=== PATIENT | male | born 1955 | race Caucasian/White ===

== ENCOUNTER 2016-03-27 09:20 | Observation (INO) | payer OTHER ==
[2016-03-27] MEDS ORDERED: ASPIRIN 81 MG (BABY) CHEWABLE TABLET PO ONE (09:24)
[2016-03-27] MEDS ORDERED: Sodium Chloride 0.9% 1,000 ML PRIMARY IV ONE (09:24)
[2016-03-27] MEDS ORDERED: NORMAL SALINE 10 ML SYRINGE FLUSH IVP PRN ×2 (09:24→12:21)
[2016-03-27 09:41] LABS: BASOPHILS # (AUTO) 0.03 10*3/UL; BASOPHILS % (AUTO) 0.3 % (0-1); EOSINOPHILS % (AUTO) 0.7 % (0-8); HEMATOCRIT 47.3 % (42.0-52.0); HEMOGLOBIN 16.2 g/dL (14.0-18.0); IMM GRAN % (AUTO) 0.2 % (0-5); IMM GRAN# (AUTO) 0.02 10*3/UL; LYMPHOCYTES # (AUTO) 1.33 10*3/uL; LYMPHOCYTES % (AUTO) 13.2 % (10-50); MEAN CORPUSCULAR HEMOGLOBIN 30.5 PG (27-31); MEAN CORPUSCULAR HGB CONC 34.2 g/dL (33-37); MEAN PLATELET VOLUME 9.3 FL (7.4-12.2); MONOCYTES # (AUTO) 0.81 10*3/UL (0.3-0.8); MONOCYTES % (AUTO) 8.1 % (5-15); NEUTROPHILS # (AUTO) 7.79 10*3/UL; NEUTROPHILS % (AUTO) 77.5 % (50-80); RDW COEFFICIENT OF VARIATION 13.7 % (11.5-14.5); RED BLOOD COUNT 5.31 10^6/uL (4.70-6.10); WHITE BLOOD COUNT 10.05 10^3/uL (4.8-10.8)
[2016-03-27 09:42] LABS: PLATELET MORPHOLOGY COMMENT NORMAL MORPHOLOGY (NORM)
[2016-03-27] MEDS: NITROGLYCERIN 0.4 MG SL TAB (BOTTLE OF 3) SL PRN ×3 (09:47→10:08)
[2016-03-27 10:01] LABS: ASPARTATE AMINO TRANSFERASE 27 IU/L (21-57); BLOOD UREA NITROGEN 14 mg/dL (7-22); CHLORIDE 96 meq/L (98-112); CREATININE 0.8 mg/dL (0.70-1.50); EST GLOMERULAR FILTRATION > 60 (>60 ml/min/1.73m(2)); GLUCOSE 117 mg/dL (78-110); MAGNESIUM 1.8 mg/dL (1.6-2.4); POTASSIUM 4.7 meq/L (3.8-5.2); SODIUM 133 meq/L (135-145); TOTAL PROTEIN 7.3 g/dL (6.1-8.0)
--- NOTE | 2016-03-27 10:03 | PDOC ---
Chest Pain HPI - General Chief Complaint: Chest Pain Stated Complaint: CHEST PAIN Date Seen by Provider: 03/27/16 Time Seen by Provider: 09:20 Source: Patient Exam Limitations: POSITIVE: No limitations Treatment Prior to Arrival: REPORTS: None Nurse's Notes Reviewed & Considered: Yes - History of Present Illness Initial Comments: The patient is a 60-year-old male who presents to the emergency department with left-sided chest pain. He states that he had onset of pain approximately 90 minutes ago. He states that he was upset and angry at the time of onset of pain. His pain has worsened slightly since then. His current pain level is about a 5 out of 10. His pain is not worsened significantly with taking a deep breath. He denies any nausea, lightheadedness, palpitations or any other associated complaints. He does have a history of coronary artery disease and is status post [place] in 2000. 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 He also continues to smoke and has a history of hypertension. He denies any pain or swelling in his legs, recent illness or any other associated complaints. - Patient Home Medications Home Medications: Home Medications Aspirin Chewable Tab 81 mg PO DAILY 03/27/16 Atorvastatin Calcium [Lipitor] 80 mg PO DAILY 03/27/16 Fosinopril Sodium 10 mg PO DAILY 03/27/16 Metoprolol Succinate [Toprol XL] 50 mg PO DAILY 03/27/16 - Patient Allergies Allergies/Adverse Reactions: Allergies Allergy/AdvReac Type Severity Reaction Status Date / Time codeine Allergy NOT Verified 03/27/16 09:36 APPLICABLE Past Medical History - heen HEENT History: Denies History Cardiovascular History: Hypertension, Previous [place], Hyperlipidemia Respiratory History: Other (please comment) Additional Respiratory History: SMOKER Gastrointestinal History: Diverticulitis Genitourinary History: Denies History Endocrine History: Denies History Musculoskeletal History: Denies History Neurological History: Denies History Blood Disorders: Denies History Psychiatric History: Denies History Male Reproductive History: Denies History Cancer History: Denies History In Past Year Been Physically Harmed or Verbally Threatened: No History of MDRO: No Tobacco Use: Current Every Day Smoker Alcohol Use: Occasionally Substance Use Type: None Previous Surgical History: Yes Type / Date of Surgery: CARDIAC STENTS Significant Family History: No pertinent family hx Past Medical History Reviewed: Reviewed - No Changes ROS - Limitations ROS Limitations: No Limitations Constitution: DENIES: Chills, Fever Cardiovascular: REPORTS: Chest Pain. DENIES: Heart Racing, Heart Palpitations, Blood Pressure Problem, Edema Respiratory: REPORTS: Denies Resp Symptoms. DENIES: Hurts To Breathe Neurological: REPORTS: Denies Neuro Symptoms Gastrointestinal: REPORTS: Denies GI Symptoms Musculoskeletal: REPORTS: Denies MS Symptoms Eyes: REPORTS: Denies Symptoms ENT: REPORTS: Denies Symptoms Skin: DENIES: Rash Chest Pain PE - General Appearance General Appearance: REPORTS: Alert, Cooperative, No Acute Distress - HEENT HEENT: POSITIVE: Head Inspection Nml, Eyes Inspection Nml, Ears Inspection Nml - Neck Neck: REPORTS: Normal Inspection. DENIES: JVD Present - Respiratory Respiratory: REPORTS: No Respiratory Distress, Breath Sounds Normal - Cardiovascular Cardiovascular: REPORTS: Regular Rate and Rhythm, Heart Sounds Normal Peripheral Pulses: Dorsalis-pedis (R): 2+, Dorsalis-pedis (L): 2+ - Abdomen Abdomen: Soft: (All Quadrants), No Guarding: (All Quadrants), No Rebound: (All Quadrants), No Distention: (All Quadrants) - Skin Skin: REPORTS: Intact, No Rash - Extremities Extremity: Normal ROM: (All Extremities), Normal Inspection: (All Extremities) - Neurological / Psychological Neurological: POSITIVE: Oriented X3, Motor Normal, Sensation Normal Chest Pain Progress - Results Reviewed by me Xrays/CTs/US Reviewed by me: Yes Discussed with Radiologist: Yes Radiology Findings: Chest x-ray shows multiple soft tissue nodules measuring less than 3 mm, no previous chest x-ray available for comparison, no acute changes otherwise Lab Results Reviewed: Yes Lab Results:: Laboratory Results 03/27/16 Range/Units 09:37 WBC 10.05 (4.8-10.8) 10^3/uL RBC 5.31 (4.70-6.10) 10^6/uL Hgb 16.2 (14.0-18.0) g/dL Hct 47.3 (42.0-52.0) % MCV 89.1 (80-90) FL MCH 30.5 (27-31) PG MCHC 34.2 (33-37) g/dL RDW Std Deviation 44.3 (39-50) fL RDW Coeff of Radha 13.7 (11.5-14.5) % Plt Count 239 (140-350) 10*3/uL MPV 9.3 (7.4-12.2) FL Immature Gran % (Auto) 0.2 (0-5) % Neut % (Auto) 77.5 (50-80) % Lymph % (Auto) 13.2 (10-50) % [place] % (Auto) 8.1 (5-15) % Eos % (Auto) 0.7 (0-8) % Baso % (Auto) 0.3 (0-1) % Immature Gran # (Auto) 0.02 10*3/UL Neut # (Auto) 7.79 10*3/UL Lymph # (Auto) 1.33 10*3/uL [place] # (Auto) 0.81 H (0.3-0.8) 10*3/UL Eos # (Auto) 0.07 10*3/UL Baso # (Auto) 0.03 10*3/UL WBC Morphology Comment Normal morphology (NORM) Plt Morphology Comment Normal morphology (NORM) RBC Morph Comment Normal morphology (NORM) D-Dimer < 0.19 (0.00-0.59) mg/L Sodium 133 L (135-145) meq/L Potassium 4.7 (3.8-5.2) meq/L Chloride 96 L (98-112) meq/L Carbon Dioxide 25 (23-33) meq/L Anion Gap 12 (5-20) BUN 14 (7-22) mg/dL Creatinine 0.8 (0.70-1.50) mg/dL Estimated GFR > 60 (>60 ml/min/1.73m(2)) BUN/Creatinine Ratio 17.50 (6-20) Glucose 117 H (78-110) mg/dL Calculated Osmolality 277.0 (267-292) mOsm/kg Calcium 9.0 (8.7-10.7) mg/dL Magnesium 1.8 (1.6-2.4) mg/dL Total Bilirubin 1.0 (0.3-1.2) mg/dL AST 27 (21-57) IU/L ALT 40 (21-72) IU/L Alkaline Phosphatase 95 (38-126) IU/L CK-MB (CK-2) 1.28 (0.00-5.00) NG/DL Troponin I < 0.012 (< 0.040) ng/mL Total Protein 7.3 (6.1-8.0) g/dL Albumin 4.4 (3.5-4.8) g/dL Globulin 2.9 (2.50-4.10) g/dL Albumin/Globulin Ratio 1.50 (1.3-2.0) mg/g EKG Interpreted/Reviewed By Me:: Yes EKG Interpretation:: POSITIVE: Normal Sinus Rhythm, Normal Rate, Normal [place], Normal QRS, Normal ST/T, Other (His initial EKG shows normal sinus rhythm with no acute ST segment or T-wave changes) - Patient's Progress MDM / ED Course: His initial EKG on presentation shows normal sinus rhythm with no acute ST segment or T-wave changes. He was given aspirin per chest pain protocol. In addition his blood pressure was significantly elevated at 200/100 on arrival. He was given sublingual nitroglycerin. His blood pressure came down into the 120s to 130s with administration of sublingual nitroglycerin. His pain also improved down to a very slight ache. His initial d-dimer and troponin are normal, other blood work is unremarkable. The patient does have multiple risk factors for coronary artery disease. It was felt that it would be best to admit him for further cardiac monitoring and workup. The patient is in agreement with this plan. Dr. Ruiz has agreed to admit the patient. - Consult Counseled: POSITIVE: Patient, RE: Lab Results, RE: Radiology Results, RE: DX, RE : Need for F/U Patient Care Time - Estimated PCT Patient Care Time (In Minutes): 25 Vital Signs - Recent Vital Signs Vital Signs: Vital Signs (Last 8 hours) Pulse Resp BP Pulse Ox 03/27/16 09:24 80 20 201/114 97 - VS Reviewed Vital Signs Reviewed: Yes Discharge Clinical Impression: Chest pain, Hypertension Discharge Disposition: Admit to Observation Condition: Stable
[2016-03-27 10:12] LABS: CREATINE KINASE MB 1.28 NG/DL (0.00-5.00)
[2016-03-27 10:13] LABS: TROPONIN I < 0.012 ng/mL (< 0.040)
--- NOTE | 2016-03-27 10:42 | DI ---
AP CHEST X-RAY, 03/27/2016 9:24 AM : Clinical History: Chest pain. Previous Exam: None at this facility. There is no acute soft tissue or bony abnormality. Heart size is normal. There is no acute infiltrate or effusion. Multiple nodular densities are present bilaterally in these range up to 3 mm in diamete r. Mediastinal structures are normal. Readin. No acute infiltrate or effusion is present. 2. Multiple bilateral nodules are present and these do not appear to be calcified. These range in si ze up to 3 mm in diameter. No hilar adenopathy or calcified lymph nodes are noted.
--- NOTE | 2016-03-27 11:14 | EKG ---
[address] [address] Measurements Intervals Chloe Rate: 70 P: 60 [place]: 162 QRS: 51 QRSD: 100 T: 75 QT: 380 QTc: 400 Interpretive Statements SINUS RHYTHM WITH SINUS ARRHYTHMIA No previous ECG available for comparison Electronically Signed On 03-27-16 12:39:14 MST by Henry Peng [id number]
--- NOTE | 2016-03-27 12:25 | PDOC ---
History and Physical - History of Present Illness Date and Time of Service: 03/27/2016 12:25 PM Chief Complaint: Episode of chest pain today History of Present Illness: This is a 60 years old male with medical history significant for history of hypertension, hypercholesterolemia and coronary artery disease with previous stent who said that he was at work and then became upset and angry and he started to have pain in the left side of the chest and some numbness in his left arm that he rated to be about 4-5 out of 10 because of the symptoms he came into the ER the EKG was negative, enzymes were negative and he was admitted for further management. He did get the nitroglycerin and aspirin while done in the ER and that helped his pain. He forgot to take his blood pressure medications today. Past Medical History Medical History: 1. History of coronary artery disease with previous [place] in 2000 with a stent. 2. History of hypertension. 3. History of hypercholesterolemia Surgical History: 1. History of cholecystectomy. 2. History of multiple hand surgery Past Social History: He is a smoker, pack a day, rarely drinks, no drugs. 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 Tobacco Use: Current Every Day Smoker Do you dip or chew tobacco: No Substance Use Type: None Alcohol Use: Rarely Medication / Allergies Home Medications: Home Medications Medication Instructions Recorded Confirmed Type Aspirin Chewable Tab 81 mg PO DAILY 03/27/16 03/27/16 History Atorvastatin Calcium [Lipitor] 80 mg PO DAILY 03/27/16 03/27/16 History Fosinopril Sodium 10 mg PO DAILY 03/27/16 03/27/16 History Hydrochlorothiazide 12.5 mg PO DAILY 03/27/16 03/27/16 History Metoprolol Succinate [Toprol XL] 50 mg PO DAILY 03/27/16 03/27/16 History Allergies/Adverse Reactions: Allergies Allergy/AdvReac Type Severity Reaction Status Date / Time codeine Allergy NOT Verified 03/27/16 14:15 APPLICABLE Review of Systems - Review of Systems All Systems: Reviewed & No Additional Complaints Except as Stated Exam - Vitals Vital Signs: Vital Signs Temperature 97.5 F Temperature Source Temporal Artery Scan Pulse Rate [Pulse Oximeter] 71 Respiratory Rate 18 Blood Pressure [Right Arm] 151/80 Pulse Ox 95 Oxygen Delivery Method Room Air - General General Appearance: POSITIVE: No Acute Distress, Cooperative - Head Head Exam: POSITIVE: Normal Inspection - Eye Eye Exam: POSITIVE: Normal Appearance - ENT ENT Exam: POSITIVE: Normal Exam - Neck Neck Exam: POSITIVE: Normal Inspection - Respiratory Respiratory Exam: POSITIVE: Clear to Auscultation - Bilaterally - Cardiovascular Cardiovascular Exam: POSITIVE: RRR - GI/Abdominal GI/Abdominal Exam: POSITIVE: Normal Bowel Sounds, Non Tender, Non Distended, Soft - Rectal Rectal Exam: POSITIVE: Deferred - External Exam: POSITIVE: Deferred Exam: POSITIVE: Deferred - Extremities Extremities Exam: POSITIVE: Normal Inspection - Back Back Exam: POSITIVE: Normal Inspection - Neurological Neurological Exam: POSITIVE: Alert, Oriented x 3, CN II-XII Intact, Moves All Extremities Equally - Psychiatric Psychiatric Exam: POSITIVE: Normal Affect - Integumentary Integumentary Exam: POSITIVE: Normal Color Results - Labs CBC and BMP: 03/27/16 09:37 03/27/16 09:37 - EKG Data EKG Interpretation: Normal EKG - Imaging Status: Report Reviewed by Me (Chest x-ray Some nodules noted on the lung) Assessment and Plan - Patient Problems (1) Chest pain Current Visit: Yes Status: Acute Comment: We repeat his enzymes will order stress test for tomorrow. This may be related to stress and uncontrolled blood pressure (2) Hypertension Current Visit: Yes Status: Acute Comment: Blood pressure was high when he came in, he said he didn't take his blood pressure medication will give him his blood pressure medication. (3) Hypercholesterolemia Current Visit: Yes Status: Acute Comment: Same medications (4) Pulmonary nodules Current Visit: Yes Status: Acute Comment: Few pulmonary nodules noted on the x-ray of his chest, will order a CT may need to be followed up later on as an outpatient
[2016-03-27] MEDS: METOPROLOL SUCCINATE 50 MG SR 24H TABLET PO SCH (13:06)
--- NOTE | 2016-03-27 15:34 | DI ---
CT CHEST SCAN WITHOUT IV CONTRAST, 03/27/2016 12:28 PM : Clinical History: Abnormal chest x-ray revealing multiple bilateral pulmonary nodules. Previous Exam: None at this facility. Comparison is made with the chest x-ray performed on 03/27/2016. Scans are performed from the base of the neck to the lower lung bases without IV contrast. Sagittal a nd coronal images using non MIPS and MIPS technique are generated. The base of the neck and thoracic inlet are normal. There are no abnormal axillary or supraclavicular nodes. There calcified lymph nodes involving the right and left paratracheal, subcarinal, and hilar nodes bilaterally. The heart is normal. Coronary artery calcifications are visualized in the LAD, lef t circumflex artery, and the right coronary artery. This patient may have a vascular stent in the LAD distal to the second diagonal artery. There are bilateral calcified nodules involving all lobes. The se nodules range in size between 2-4 mm in diameter. Both adrenal glands are normal. The spleen is un remarkable except for multiple punctate calcifications and together with the calcifications in the ly mph nodes and the lungs, this patient most likely has had prior exposure to either TB or histoplasmos is. Limited views of the liver and pancreas are also normal. READIN. The bilateral pulmonary nodules range in size between 2-4 mm in diameter and are calcified. Calci fied lymph nodes are present in the myriam and mediastinum and spleen. This patient most likely has had previous exposure to either TB or histoplasmosis. 2. Coronary artery disease with calcifications in the right coronary artery, the LAD, and the left c ircumflex artery. There may be a stent in the midportion of the LAD.
[2016-03-27] MEDS ORDERED: ATORVASTATIN 40 MG TABLET PO SCH (21:00)
[2016-03-28 07:55] VITALS: RESP 20
[2016-03-28] MEDS ORDERED: ASPIRIN 325 MG TABLET PO SCH (09:00)
[2016-03-28] MEDS ORDERED: HYDROCHLOROTHIAZIDE 12.5 MG CAPSULE PO SCH (09:00)
--- NOTE | 2016-03-28 10:16 | PDOC(PROG) ---
Date and Time of Service: 03/28/2016 10:13 AM Interval History: Subjective Patient feels better denying complaints today there is no chest pain. No shortness of breath. Objective : Data - Labs CBC and BMP: 03/27/16 09:37 03/27/16 09:37 Labs - Last 24 Hours: Laboratory Results 03/27/16 03/27/16 Range/Units 15:50 21:19 Total Creatine Kinase 66 73 (55-170) IU/L Troponin I < 0.012 < 0.012 (< 0.040) ng/mL Objective : Exam - General General Appearance: No Acute Distress, Cooperative - Head Head Exam: Normal Inspection - Eye Eye Exam: Normal Appearance - ENT ENT Exam: Normal Exam - Neck Neck Exam: Normal Inspection - Respiratory Additional Respiratory Exam Details: Decreased breath sounds otherwise clear - Cardiovascular Cardiovascular Exam: RRR - GI/Abdominal GI/Abdominal Exam: Normal Bowel Sounds, Non Tender, Non Distended, Soft - Rectal Rectal Exam: Deferred - External Exam: Deferred - Extremities Extremities Exam: Normal Inspection Additional Extremities Exam Details: Scar noted on the left lower leg - Back Back Exam: Normal Inspection - Neurological Neurological Exam: Alert, Oriented x 3, CN II-XII Intact, Speech Intact / Clear , Moves All Extremities Equally - Psychiatric Psychiatric Exam: Normal Affect - Integumentary Additional Integumentary Exam Details: Scar noted on the left lower leg Assessment and Plan - Patient Problems (1) Chest pain Current Visit: Yes Status: Acute Comment: Enzymes negative, EKG no new changes. He had a stress test they will do the imaging later on today and will see the result. (2) Hypertension Current Visit: Yes Status: Acute Comment: Same medications (3) Hypercholesterolemia Current Visit: Yes Status: Acute Comment: Same medications (4) Pulmonary nodules Current Visit: Yes Status: Acute Comment: CT showed some calcifications and this is likely a result of previous the infections.
--- NOTE | 2016-03-28 10:37 | STRESSTEST ---
[facility] Interpretive Statements Patient had lexiscan stress test per protocol, baseline BP was 138/94, heart rate was 75, EKG normal sinus rhythm with poor R waves progression in the anterior leads, after injection patient did have some shortness of breath but that resolved in the recovery phase, maximum BP was 168/90 , maximum heart rate 106, no signifcant changes on the EKG had one premature ventricular beat., conclusion No signifacnt EKG changes noted on the EKG part of lexiscan stress test. await nuclear scan results. [id number]
[2016-03-28] MEDS: METOPROLOL SUCCINATE 50 MG SR 24H TABLET PO SCH (10:54)
[2016-03-28 12:17] VITALS: TEMP 98.2
[2016-03-28] MEDS ORDERED: LISINOPRIL 10 MG TABLET PO SCH (12:45)
--- NOTE | 2016-03-28 13:58 | DI ---
2 DAY LEXISCAN STRESS & REST MYOCARDIAL PERFUSION SCANS, 03/27/2016-03/28/2016: Clinical History: Chest pain. The patient has had a stent placed previously. This was visualized on t he recent CT scan from 03/27/2016. Previous Exam: None at this facility. Monitoring Physician: Dr. Otoniel Ruiz. Dose: Stress dose: 34 mCi on 03/28/2016. Rest dose: 36 mCi on 03/27/2016. Quantitative Analysis: Qranio program with low dose limited CT chest scan attenuation correctio n. Exam Quality: Excellent. Rejected Beats: Stress = 0%; Rest = 1%. HR: Stress = 72-85 b/m; Rest = 71-8 3 b/m. Left ventricular chamber sizes are normal at stress and rest. Transient ischemic dilatation ratio is 1.05 (normal Gelacio TID <= 1.22; normal Lexiscan TID <= 1.33). Stress LVEF: 69%; rest LVEF: 66%. The n on-attenuated stress and rest perfusion scans show an equivocal area of a fixed defect in the anteros eptal region. The attenuated corrected scans show an anteroapical fixed defect without significant re perfusion. All other dowell perfuse normally at stress and rest for both the non-attenuated and the at tenuated scans. Stress and rest wall motion shows hypokinesis in the septum and the anteroapical jimy on, with normal wall motion in the remaining segments. There is normal myocardial thickening at stres s and rest. Limited CT scans of the heart calcifications in the LAD, right coronary artery, and the l eft circumflex artery. Numerous calcified nodules are present bilaterally as well as calcification in the myriam and mediastinum. Readin. Normal stress and rest left ventricular chamber size. Transient ischemic dilatation ratio is 1.05 . 2. Normal stress and rest LVEF values of 69%, and 66%, respectively. 3. There is an anteroapical fixed defect on the attenuated corrected scans with hypokinesis at stres s and rest in the anteroapical segment and the septum consistent with an infarct, possibly a nontrans mural infarct. There is no evidence of ischemia. Normal wall motion and thickening is present in the remaining segments. 4. Extensive coronary artery calcifications are present in all [address] scan of the chest from the day before revealed a stent in the midportion of the LAD. There are bilateral pul monary calcified nodules along with calcification of both myriam and the mediastinum indicating old gra nulomatous disease.
--- NOTE | 2016-03-28 14:26 | DCSUMMARY ---
Hospitalization Summary Admit Date: 03/27/16 Discharge Date: 03/28/16 Hospital Course: Discharge diagnoses 1. Episode of chest pain resolved, enzymes negative, stress test showed evidence of fixed defect no evidence of ischemia 2. History of coronary artery disease with previous MO in 2000 with a stent 3. History of hypertension 4. History of hypercholesterolemia 5. Bilateral pulmonary nodule range in size between 2-4 mm in diameter calcified, calcified lymph nodes likely secondary to previous granulomatous disease Hospital course This is a 60 years old male with medical history significant for history of hypertension, hypercholesterolemia and coronary artery disease with previous stent who was at work and he got upset and angry and he started to have pain in the left side of the chest and some numbness in the left arm rated, the pain was between 4-5 out of 10 because of the symptoms came into the ER EKG was negative and exam were negative and was admitted for further management and investigation. His blood pressure was high when he came in and he received a dose of aspirin and nitroglycerin he said he forgot to take also his blood pressure medication that day. When I saw him his exam was not remarkable. EKG showed poor R-wave progression anteriorly. We repeated his enzymes and they remained negative. The chest x-ray suggested pulmonary nodules so we did a CT of the chest which showed bilateral pulmonary nodule range in size from 2- 4 mm in diameter and they are calcified, calcified lymph node are present in the myriam and mediastinum and spleen likely the patient had a previous exposure to either TB or histoplasmosis. Patient had a Lexiscan stress test the next day which showed normal stress and left ventricular chamber size, normal stress and rest left ventricle ejection fraction, there is an anteroapical fixed defect on the attenuated corrected scan with hypokinesis at rest and stress in the anteroapical segment and the septum consistent with an infarct possibly a nontransmural infarct. There is no evidence of ischemia. Normal wall motion and thickening of the remaining segment. Extensive coronary artery calcification present in all 3 major distributions Patient symptoms resolved, we thought that he could be discharged home and follow-up with his PCP and resident inspector on outpatient. I did tell him to quit smoking. I did speak with his primary the day before and he knows that he is in the hospital. I did speak with his with patient permission. We will give them a copy of the CT and the nuclear scan results. Patient is from [place] and is working here. Laboratory Results 03/27/16 03/27/16 03/27/16 Range/Units 09:37 15:50 21:19 WBC 10.05 (4.8-10.8) 10^3/uL RBC 5.31 (4.70-6.10) 10^6/uL Hgb 16.2 (14.0-18.0) g/dL Hct 47.3 (42.0-52.0) % MCV 89.1 (80-90) FL MCH 30.5 (27-31) PG MCHC 34.2 (33-37) g/dL RDW Std Deviation 44.3 (39-50) fL RDW Coeff of Radha 13.7 (11.5-14.5) % Plt Count 239 (140-350) 10*3/uL MPV 9.3 (7.4-12.2) FL Immature Gran % (Auto) 0.2 (0-5) % Neut % (Auto) 77.5 (50-80) % Lymph % (Auto) 13.2 (10-50) % Woodruff % (Auto) 8.1 (5-15) % Eos % (Auto) 0.7 (0-8) % Baso % (Auto) 0.3 (0-1) % Immature Gran # (Auto) 0.02 10*3/UL Neut # (Auto) 7.79 10*3/UL Lymph # (Auto) 1.33 10*3/uL Woodruff # (Auto) 0.81 H (0.3-0.8) 10*3/UL Eos # (Auto) 0.07 10*3/UL Baso # (Auto) 0.03 10*3/UL WBC Morphology Comment Normal morphology (NORM) Plt Morphology Comment Normal morphology (NORM) RBC Morph Comment Normal morphology (NORM) D-Dimer < 0.19 (0.00-0.59) mg/L Sodium 133 L (135-145) meq/L Potassium 4.7 (3.8-5.2) meq/L Chloride 96 L (98-112) meq/L Carbon Dioxide 25 (23-33) meq/L Anion Gap 12 (5-20) BUN 14 (7-22) mg/dL Creatinine 0.8 (0.70-1.50) mg/dL Estimated GFR > 60 (>60 ml/min/1.73m(2)) BUN/Creatinine Ratio 17.50 (6-20) Glucose 117 H (78-110) mg/dL Calculated Osmolality 277.0 (267-292) mOsm/kg Calcium 9.0 (8.7-10.7) mg/dL Magnesium 1.8 (1.6-2.4) mg/dL Total Bilirubin 1.0 (0.3-1.2) mg/dL AST 27 (21-57) IU/L ALT 40 (21-72) IU/L Alkaline Phosphatase 95 (38-126) IU/L Total Creatine Kinase 66 73 (55-170) IU/L CK-MB (CK-2) 1.28 (0.00-5.00) NG/DL Troponin I < 0.012 < 0.012 < 0.012 (< 0.040) ng/mL Total Protein 7.3 (6.1-8.0) g/dL Albumin 4.4 (3.5-4.8) g/dL Globulin 2.9 (2.50-4.10) g/dL Albumin/Globulin Ratio 1.50 (1.3-2.0) mg/g Discharge instruction Diet regular Activity as started Medications Home Medications Medication Instructions Recorded Confirmed Type RX: Aspirin Chewable Tab 81 mg PO DAILY 03/27/16 03/27/16 History RX: Atorvastatin Calcium [Lipitor] 80 mg PO DAILY 03/27/16 03/27/16 History RX: Fosinopril Sodium 10 mg PO DAILY 03/27/16 03/27/16 History RX: Hydrochlorothiazide 12.5 mg PO DAILY 03/27/16 03/27/16 History RX: Metoprolol Succinate [Toprol 50 mg PO DAILY 03/27/16 03/27/16 History XL] Follow-up with his PCP in 1-2 weeks Condition at discharge stable for discharge Exam - Vitals Vital Signs: Vital Signs Temperature 98.2 F Temperature Source Temporal Artery Scan Pulse Rate [Apical] 74 Pulse Rate [Pulse Oximeter] 82 Pulse Rate 79 Respiratory Rate 20 Blood Pressure [Left Arm] 160/85 Blood Pressure [Right Arm] 163/90 Pulse Ox 92 Oxygen Flow Rate 0 Oxygen Delivery Method Room Air Height 5 ft 9 in Weight 211 lb 12.8 oz Patient Problems - Patient Problem List (1) Chest pain Status: Acute (2) Hypertension Status: Acute (3) Hypercholesterolemia Status: Acute (4) Pulmonary nodules Status: Acute
== END 2016-03-28 15:00 | disposition home or self-care (01) ==
LOC: ER 09:20 → MED/SURG 10:55
PROVIDERS: ADMIT Internal Medicine; ATTEND Internal Medicine
DX: R07.9 Chest pain, unspecified (principal); I10 Essential (primary) hypertension; E78.00 Pure hypercholesterolemia, unspecified; R91.1 Solitary pulmonary nodule
CPT/HCPCS: 36415; 71010; 71250; 78452; 80053; 82550; 82553; 83735; 84484; 85025; 85379; 93005; 93010; 93016; 93017; 93018; 94761 ×2; 99284 ×2; A9500; J2785; J7030